=== PATIENT | male | born 1935 | race Caucasian/White ===

== ENCOUNTER → 2017-10-20 | Outpatient (CLI) | payer MEDICARE, OTHER ==
[~2017-10-20] MED LIST: REGADENOSON 0.4 MG/5 ML DISP.SYRIN. IV
[2017-10-20] MEDS: REGADENOSON 0.4 MG/5 ML DISP.SYRIN. IV ×2 (08:45)
== END | disposition home or self-care (01) ==
LOC: NM 07:53
DX: I25.10 Atherosclerotic heart disease of native coronary artery without angina pectoris (principal); I25.2 Old myocardial infarction; J44.9 Chronic obstructive pulmonary disease, unspecified; I10 Essential (primary) hypertension; E11.9 Type 2 diabetes mellitus without complications; Z87.891 Personal history of nicotine dependence
CPT/HCPCS: 78452; 93017; 96374; 96375; 96376; A9500; J2785